=== PATIENT | female | born 1965 | race Caucasian/White ===

== ENCOUNTER 2017-03-01 13:35 | Emergency (ER) | payer OTHER ==
--- NOTE | 2017-03-01 13:45 | UC ---
Respiratory Complaint HPI - HPI Summary HPI Summary: 51 YEAR OLD FEMALE PRESENTS WITH COMPLAINS OF COUGH AND SHORTNESS OF BREATH - History of Current Complaint Stated Complaint: COUGH CHEST HURTS SHORTNESS OF BREATH Time Seen by Provider: 03/01/17 13:41 Hx Last Menstrual Period: 07/02/16 - Allergies/Home Medications Allergies/Adverse Reactions: Allergies Allergy/AdvReac Type Severity Reaction Status Date / Time Gabapentin Allergy Intermediate Difficulty Verified 03/01/17 14:01 Swallowing Penicillins Allergy Intermediate See Comment Verified 03/01/17 14:01 Pregabalin [From Lyrica] Allergy Intermediate See Comment Verified 03/01/17 14: 01 Home Medications: Home Medications GuaiFENesin DM* [Robitussin DM*] 10 ml PO Q4H PRN 03/01/17 [History Confirmed ] PMH/Surg Hx/FS Hx/Imm Hx Previously Healthy: Yes - Surgical History Surgical History: Yes Surgery Procedure, Year, and Place: eptopic at age 23 - Family History Known Family History: Negative: Hypertension, Diabetes - Social History Alcohol Use: Occasionally Substance Use Type: None Smoking Status (MU): Heavy Every Day Tobacco Smoker Type: Cigarettes Amount Used/How Often: 1/2 ppd Have You Smoked in the Last Year: Yes - Immunization History Most Recent Influenza Vaccination: has not had Review of Systems Constitutional: Negative Skin: Negative Eyes: Negative ENT: Negative Respiratory: Shortness Of Breath, Cough Cardiovascular: Negative Gastrointestinal: Negative Genitourinary: Negative Motor: Negative Neurovascular: Negative Musculoskeletal: Negative Neurological: Negative Psychological: Negative All Other Systems Reviewed And Are Negative: Yes Physical Exam Triage Information Reviewed: Yes Eye Exam: Normal ENT Exam: Normal Dental Exam: Normal Neck exam: Normal Neck: Positive: 1 Respiratory: Positive: Rhonchi, Wheezing, Expiration Cardiovascular Exam: Normal Abdominal Exam: Normal Musculoskeletal Exam: Normal Neurological Exam: Normal Psychological Exam: Normal Skin Exam: Normal Respiratory Course/Dx - Differential Dx/Diagnosis Provider Diagnoses: PNEUMONIA. COPD Discharge - Discharge Plan Condition: Stable Disposition: HOME Prescriptions: Albuterol HFA INHALER* [Ventolin HFA Inhaler*] 1 puff INH Q6H PRN #1 mdi PRN Reason: Wheezing DOXYcycline CAP(*) [DOXYcycline 100MG CAP(*)] 100 mg PO BID #20 cap guaiFENesin/CODIEN 100MG-10MG* [Robitussin AC 100Mg-10Mg*] 5 ml PO Q6H PRN #120 udc MDD 20 PRN Reason: Cough predniSONE TAB* [Deltasone TAB*] 40 mg PO DAILY #8 tab Patient Education Materials: Community Acquired Pneumonia (ED) Forms: *Work Release Referrals: Yariel Mas MD [Primary Care Provider] -
[2017-03-01] MEDS ORDERED: Albuterol/Ipratropium NEB.SOL* Albuterol 2.5 MG/Ipratropium 0.5 MG 3 ML INH ONE (13:46)
[2017-03-01] MEDS ORDERED: predniSONE TAB* 20 MG PO ONE (13:48)
[2017-03-01 14:03] VITALS: BP 119/69
--- NOTE | 2017-03-01 14:06 | RAD ---
INDICATION: Cough. COMPARISON: There are no prior studies available for comparison. TECHNIQUE: Dual-energy PA and lateral views of the chest were obtained. FINDINGS: The heart is within normal limits in size. Mediastinal and hilar contours appear within normal limits. There is a faint patchy right upper lobe infiltrate suspicious for pneumonia. The lungs are otherwise clear. No pleural effusion is seen. IMPRESSION: RIGHT UPPER LOBE INFILTRATE.
== END 2017-03-01 14:21 | disposition home or self-care (01) ==
LOC: UCCORT 13:35
DX: J18.9 Pneumonia, unspecified organism (principal); J44.9 Chronic obstructive pulmonary disease, unspecified; F17.210 Nicotine dependence, cigarettes, uncomplicated
CPT/HCPCS: 71020; 99213; A9270-GY; G0463; J7512

== ENCOUNTER 2017-12-22 15:20 | Emergency (ER) | payer OTHER ==
[2017-12-22 15:48] VITALS: BP 152/88
[2017-12-22] MEDS ORDERED: HYDROcodone/ACETAMIN 5-325 MG* 1 TAB PO ONE ×2 (16:45→16:46)
[2017-12-22] MEDS ORDERED: Clindamycin CAP* 150 MG PO ONE ×2 (16:45→16:46)
--- NOTE | 2017-12-22 16:57 | UC ---
[facility] HPI - HPI Summary HPI Summary: 52 yo female with right lower jaw pain and swelling x 2 days no relief with motrin no f/c - History of Current Complaint Chief Complaint: UCGeneralIllness Stated Complaint: GUM AND JAW SWELLING Time Seen by Provider: 12/22/17 16:36 Hx Obtained From: Patient Hx Last Menstrual Period: 07/02/16 Onset/Duration: Sudden Onset, Lasting Days Severity: Severe Pain Intensity: 8 Pain Scale Used: 0-10 Numeric Aggravating Factor(s): Heat, Cold, Chewing Alleviating Factor(s): Nothing Related History: Swelling - Allergies/Home Medications Allergies/Adverse Reactions: Allergies Allergy/AdvReac Type Severity Reaction Status Date / Time gabapentin Allergy Intermediate Difficulty Verified 12/22/17 15:38 Swallowing Penicillins Allergy See Comment Verified 12/22/17 15:38 pregabalin [From Lyrica] Allergy See Comment Verified 12/22/17 15:38 PMH/Surg Hx/FS Hx/Imm Hx Previously Healthy: Yes Endocrine History: Dyslipidemia - Surgical History Surgical History: Yes Surgery Procedure, Year, and Place: eptopic at age 23 - Family History Known Family History: Negative: Hypertension, Diabetes - Social History Alcohol Use: Occasionally Substance Use Type: None Smoking Status (MU): Heavy Every Day Tobacco Smoker Type: Cigarettes Amount Used/How Often: 3-4 CIG/DAY Length of Time of Smoking/Using Tobacco: Since Age 18 Have You Smoked in the Last Year: Yes - Immunization History Most Recent Influenza Vaccination: has not had Review of Systems Constitutional: Negative Skin: Negative Eyes: Negative ENT: Dental Pain Respiratory: Negative Cardiovascular: Negative Gastrointestinal: Negative Genitourinary: Negative Motor: Negative Neurovascular: Negative Musculoskeletal: Negative Neurological: Negative Psychological: Negative Is Patient Immunocompromised?: No All Other Systems Reviewed And Are Negative: Yes Physical Exam Triage Information Reviewed: Yes Appearance: Well-Appearing, No Pain Distress, Well-Nourished Vital Signs: Initial Vital Signs Temp 98 F 12/22/17 15:41 Pulse 61 12/22/17 15:41 Resp 18 12/22/17 15:41 BP 152/88 12/22/17 15:41 Pulse Ox 98 12/22/17 15:41 Vital Signs Reviewed: Yes Eyes: Positive: Conjunctiva Clear ENT: Positive: Hearing grossly normal, Uvula midline. Negative: Pharyngeal erythema, Nasal congestion, Tonsillar swelling, Tonsillar exudate, Muffled voice , Hoarse voice Dental Exam: Other - many abscent teeth Dental: Positive: Abscess @ Neck: Positive: Supple, Nontender, No Lymphadenopathy Respiratory: Positive: Lungs clear, Normal breath sounds, No respiratory distress, No accessory muscle use Cardiovascular: Positive: RRR, No Murmur Musculoskeletal: Positive: ROM Intact, No Edema Neurological: Positive: Alert Skin Exam: Normal Dental Complaint Course/Dx - Differential Dx/Diagnosis Provider Diagnoses: dental abscess Discharge - Sign-Out/Discharge Documenting (check all that apply): Discharge/Admit/Transfer - Discharge Plan Condition: Stable Disposition: HOME Prescriptions: Clindamycin Cap(NF) [Clindamycin Cap 300 mg Cap(NF)] 300 mg PO QID #28 cap HYDROcodone/ACETAMIN 5-325 MG* [[place] 5-325 TAB*] 1 tab PO Q4H PRN #10 tab MDD 5 PRN Reason: Pain (Dental) Patient Education Materials: Dental Abscess (ED), Probiotic (By mouth) Referrals: Yariel Mas MD [Primary Care Provider] - If Needed Additional Instructions: TO ER IF SYMPTOMS WORSEN To ER if not better in 48 hours See your dentist first available appt - Billing Disposition and Condition Condition: STABLE Disposition: Home Images Dental: 1 - abscess
== END 2017-12-22 17:03 | disposition home or self-care (01) ==
LOC: UCCORT 15:20
DX: K04.7 Periapical abscess without sinus (principal); Z88.0 Allergy status to penicillin; Z88.8 Allergy status to other drugs, medicaments and biological substances; F17.210 Nicotine dependence, cigarettes, uncomplicated
CPT/HCPCS: 99213; A9270-GY; G0463